=== PATIENT | male | born 1995 | race Hispanic/Latino ===

== ENCOUNTER 2018-04-09 16:53 | Emergency (ER) | payer OTHER ==
[~2018-04-09] VITALS: Ht 167.6 cm; Wt 38.0 kg
[2018-04-09] MEDS ORDERED: CEPHALEXIN500 MG PO (18:41)
[2018-04-09 21:20] VITALS: BP 121/77
== END 2018-04-09 21:20 | disposition home or self-care (01) | DRG 563 ==
LOC: ED 16:53
DX: S93.401A Sprain of unspecified ligament of right ankle, initial encounter (principal); S91.011A Laceration without foreign body, right ankle, initial encounter; L03.115 Cellulitis of right lower limb; W30.89XA Contact with other specified agricultural machinery, initial encounter; Y93.89 Activity, other specified; Y92.89 Other specified places as the place of occurrence of the external cause; Y99.0 Civilian activity done for income or pay